=== PATIENT | female | born 1935 | race Caucasian/White ===

== ENCOUNTER 2017-03-15 20:26 | Inpatient (IN) ==
[2017-03-15] MEDS ORDERED: NITROGLYCERIN 2% OINT 1 INCH/GM PACK TOP STA (20:55)
[2017-03-15] MEDS ORDERED: methylPREDNISolone SOD SUC 125 MG/2 ML VIAL IV STA (20:55)
[2017-03-15] MEDS ORDERED: FUROSEMIDE 100 MG/10 ML VIAL IV STA (20:55)
[2017-03-15] MEDS ORDERED: ASPIRIN 325 MG TABLET PO STA (20:55)
[2017-03-15] MEDS ORDERED: ALBUTEROL 2.5 MG/3 ML NEB RESP TX SCH (21:00)
[2017-03-15 22:19] LABS: Basophils % 0.3 % (0.0-0.8); Eosinophils # 0.2 10*3/uL (0.0-0.87); Eosinophils % 2.5 % (0.00-10.9); Hematocrit 29.8 VOL% (35.7-47.0); Hemoglobin 9.7 GM/DL (12.0-16.0); Immature Granulocytes % 0.8 %; Immature Granulocytes Absolute 0.06 #; Lymphocytes # 0.7 10*3/uL (1.4-4.0); Lymphocytes % 9.4 % (21.3-54.2); Mean Corpuscular HGB Conc 32.6 GM/DL (32-36); Mean Corpuscular Hemoglobin 31 PG (27-34); Mean Corpuscular Volume 94.3 FL (87-102); Mean Platelet Volume 9.3 FL (9.6-12.0); Monocytes # 0.7 10*3/uL (0.11-0.8); Monocytes % 9.1 % (1.7-12.7); Neutrophils # 5.6 10*3/uL (1.4-7.4); Neutrophils % 77.9 % (38.7-73.9); Platelet Count 171 T/CUMM (130-400); Red Blood Count 3.16 MC/CUMM (3.8-5.5); Red Cell Distribution Width 12.8 % (9.3-17.3); White Blood Count 7.2 T/CUMM (4-12)
[2017-03-15 22:36] LABS: Alanine Aminotransferase 25 U/L (13-56); Albumin 2.8 G/DL (3.4-5.0); Alkaline Phosphatase 76 U/L (45-117); Aspartate Amino Transferase 26 U/L (0-37); Bilirubin,Total < 0.39 MG/DL (0.2-1.0); Blood Urea Nitrogen 58 MG/DL (7-18); Calcium 7.6 MG/DL (8.5-10.1); Glucose 246 MG/DL (74-106); Magnesium 2.1 MG/DL (1.8-2.4); Osmolality,Calculated 291.2 MOS/KG (273-304); Sodium 134 MMOL/L (136-145); Total Protein 6.9 G/DL (6.4-8.3); Troponin I Only 0.015 NG/ML (0.00-0.045)
[2017-03-15] MEDS ORDERED: ASPIRIN 325 MG TABLET ONE (22:45)
[2017-03-15] MEDS ORDERED: methylPREDNISolone SOD SUC 125 MG/2 ML VIAL ONE (22:45)
[2017-03-15] MEDS ORDERED: NITROGLYCERIN 2% OINT 1 INCH/GM PACK TOP ONE (22:45)
[2017-03-15] MEDS ORDERED: FUROSEMIDE 40 MG/4 ML VIAL ONE (22:45)
[2017-03-15 22:51] LABS: INR 1.1; PT Patient Result 11.6 SECS
[2017-03-15 22:52] LABS: Potassium 6.3 MMOL/L (3.5-5.1)
[2017-03-15] MEDS ORDERED: CALCIUM CHLORIDE 1,000 MG/10 ML SYRINGE IV STA (22:55)
[2017-03-15] MEDS ORDERED: CALCIUM CHLORIDE 1,000 MG/10 ML SYRINGE IV ONE (23:29)
[2017-03-16] MEDS ORDERED: GLUCAGON 1 MG VIAL IM PRN (02:50)
[2017-03-16] MEDS ORDERED: MORPHINE 2 MG/1 ML SYRINGE IV PRN (02:50)
[2017-03-16] MEDS ORDERED: ALBUTEROL/IPRATROPIUM 3 ML NEB RESP TX PRN (02:50)
[2017-03-16] MEDS ORDERED: DEXTROSE 50% 25 GM/50 ML VIAL IV PRN (02:50)
[2017-03-16] MEDS ORDERED: ACETAMINOPHEN 325 MG TABLET PO PRN (02:50)
[2017-03-16] MEDS ORDERED: PROMETHAZINE 25 MG TABLET PO PRN (02:50)
[2017-03-16] MEDS: SODIUM CHLORIDE 0.9% 1,000 ML IV SCH ×2 (03:30→21:42)
[2017-03-16] MEDS: cefTRIAXone 1,000 MG in SYRINGE 1 EACH IV SCH (03:30)
[2017-03-16] MEDS: SODIUM POLYSTYRENE SULFATE 15 GM/60 ML BOTTLE PO SCH ×4 (03:30→21:56)
[2017-03-16] MEDS ORDERED: cefTRIAXone 1,000 MG VIAL ONE (03:57)
[2017-03-16] MEDS ORDERED: SODIUM POLYSTYRENE SULFATE 15 GM/60 ML BOTTLE ONE (03:57)
[2017-03-16 05:18] LABS: Albumin 3.1 G/DL (3.4-5.0); Bilirubin,Total 0.4 MG/DL (0.2-1.0); Calcium 8.5 MG/DL (8.5-10.1); Magnesium 2.2 MG/DL (1.8-2.4); Osmolality,Calculated 294.5 MOS/KG (273-304)
[2017-03-16 05:21] LABS: Potassium 6.1 MMOL/L (3.5-5.1)
[2017-03-16 06:57] LABS: Basophils % 0.4 % (0.0-0.8); Hematocrit 30.8 VOL% (35.7-47.0); Hemoglobin 10.2 GM/DL (12.0-16.0); Immature Granulocytes Absolute 0.05 #; Lymphocytes # 0.5 10*3/uL (1.4-4.0); Lymphocytes % 9.6 % (21.3-54.2); Mean Corpuscular HGB Conc 33.1 GM/DL (32-36); Mean Corpuscular Hemoglobin 31 PG (27-34); Mean Corpuscular Volume 94.2 FL (87-102); Mean Platelet Volume 9.5 FL (9.6-12.0); Monocytes # 0.1 10*3/uL (0.11-0.8); Monocytes % 2.1 % (1.7-12.7); Neutrophils # 4.5 10*3/uL (1.4-7.4); Neutrophils % 86.9 % (38.7-73.9); Platelet Count 177 T/CUMM (130-400); Red Blood Count 3.27 MC/CUMM (3.8-5.5); Red Cell Distribution Width 12.7 % (9.3-17.3); White Blood Count 5.2 T/CUMM (4-12)
[2017-03-16 07:24] LABS: Band Neutrophils 4 % (0-10); Giant Platelets Few; Hypochromasia 1+; Lymphocytes 10 % (20-55); Microcytosis Slight; Platelet Estimate Normal; Segmented Neutrophils 85 % (50-85); Total Cells Counted 100
[2017-03-16] MEDS: INSULIN REGULAR 100 UNIT/ML SUBCUT SCH ×5 (08:00→21:29)
[2017-03-16] MEDS ORDERED: INSULIN REGULAR 100 UNIT/ML ONE (08:03)
[2017-03-16] MEDS ORDERED: FUROSEMIDE 40 MG/4 ML VIAL ONE (08:16)
[2017-03-16] MEDS: FUROSEMIDE 40 MG/4 ML VIAL IV SCH ×2 (08:29→17:28)
[2017-03-16] MEDS ORDERED: NON-FORMULARY MEDICATION (Omeprazole [Prilosec] 40 MG) PO SCH (09:00)
[2017-03-16] MEDS: GABAPENTIN 600 MG TABLET PO SCH ×2 (10:36→21:28)
[2017-03-16] MEDS: APIXABAN 2.5 MG TABLET PO SCH ×2 (10:36→21:28)
[2017-03-16] MEDS: CHOLECALCIFEROL 400 UNIT TABLET PO SCH (10:36)
[2017-03-16] MEDS ORDERED: PANTOPRAZOLE 40 MG TABLET PO ONE (10:37)
[2017-03-16] MEDS: MULTIVITAMIN (CENTRUM) TABLET PO SCH (10:37)
[2017-03-16] MEDS: CARVEDILOL 25 MG TABLET PO SCH ×2 (10:37→21:28)
[2017-03-16] MEDS: PANTOPRAZOLE 40 MG TABLET PO SCH (10:38)
[2017-03-16] MEDS ORDERED: MORPHINE 10 MG/1 ML VIAL IV PRN (11:30)
[2017-03-16 12:29] LABS: Hepatitis A Ab IgM Quant 0.07 Index; Hepatitis A Ab IgM Result Negative (Negative); Hepatitis B Core IgM Quant 0.07 Index; Hepatitis B Core IgM Result Negative (Negative); Hepatitis B Surface Ag Quant < 0.10 Index; Hepatitis B Surface Ag Result Negative (Negative); Hepatitis C Virus Ab Quant 0.05 Index; Hepatitis C Virus Ab Result Negative (Negative)
[2017-03-16] MEDS: CALCIUM ACETATE 667 MG CAPSULE PO SCH ×2 (12:47→17:39)
[2017-03-16] MEDS ORDERED: ONDANSETRON ODT 4 MG TABLET PO PRN (13:12)
[2017-03-16] MEDS: TERAZOSIN 1 MG CAPSULE PO SCH (21:28)
[2017-03-16] MEDS: ESCITALOPRAM 10 MG TABLET PO SCH (21:28)
[2017-03-16] MEDS: INSULIN GLARGINE 100 UNIT/ML SUBCUT SCH (21:29)
[2017-03-16] MEDS: amLODIPine 5 MG TABLET PO SCH (21:29)
[2017-03-17] MEDS: SODIUM POLYSTYRENE SULFATE 15 GM/60 ML BOTTLE PO SCH (02:28)
[2017-03-17] MEDS: cefTRIAXone 1,000 MG in SYRINGE 1 EACH IV SCH (04:58)
[2017-03-17 05:16] LABS: Hematocrit 31.8 VOL% (35.7-47.0); Hemoglobin 10.8 GM/DL (12.0-16.0); Immature Granulocytes % 0.7 %; Immature Granulocytes Absolute 0.04 #; Lymphocytes # 0.8 10*3/uL (1.4-4.0); Lymphocytes % 12.7 % (21.3-54.2); Mean Corpuscular Hemoglobin 31 PG (27-34); Mean Corpuscular Volume 90.9 FL (87-102); Mean Platelet Volume 9.6 FL (9.6-12.0); Monocytes # 0.5 10*3/uL (0.11-0.8); Monocytes % 8.9 % (1.7-12.7); Neutrophils # 4.7 10*3/uL (1.4-7.4); Neutrophils % 77.7 % (38.7-73.9); Platelet Count 201 T/CUMM (130-400); Red Cell Distribution Width 12.6 % (9.3-17.3)
[2017-03-17 05:33] LABS: Calcium 8.4 MG/DL (8.5-10.1); Osmolality,Calculated 291.5 MOS/KG (273-304)
[2017-03-17] MEDS: LEVOTHYROXINE 50 MCG TABLET PO SCH (06:26)
[2017-03-17] MEDS: GABAPENTIN 600 MG TABLET PO SCH ×2 (08:36→21:22)
[2017-03-17] MEDS: CETIRIZINE 10 MG TABLET PO SCH (08:36)
[2017-03-17] MEDS: MULTIVITAMIN (CENTRUM) TABLET PO SCH (08:37)
[2017-03-17] MEDS: PANTOPRAZOLE 40 MG TABLET PO SCH (08:37)
[2017-03-17] MEDS: CARVEDILOL 25 MG TABLET PO SCH ×2 (08:37→21:25)
[2017-03-17] MEDS: CALCIUM ACETATE 667 MG CAPSULE PO SCH ×3 (08:37→16:08)
[2017-03-17] MEDS: CHOLECALCIFEROL 400 UNIT TABLET PO SCH (08:37)
[2017-03-17] MEDS: ASPIRIN CHEW 81 MG TABLET PO SCH (08:37)
[2017-03-17] MEDS: COENZYME Q10 100 MG CAPSULE PO SCH (08:37)
[2017-03-17] MEDS: FUROSEMIDE 40 MG/4 ML VIAL IV SCH (08:37)
[2017-03-17] MEDS: APIXABAN 2.5 MG TABLET PO SCH ×2 (08:37→21:22)
[2017-03-17] MEDS: INSULIN REGULAR 100 UNIT/ML SUBCUT SCH ×4 (08:39→23:08)
[2017-03-17] MEDS ORDERED: CRANBERRY FRUIT 500 MG PO SCH (09:00)
[2017-03-17] MEDS ORDERED: ALBUTEROL/IPRATROPIUM 3 ML NEB RESP TX SCH (09:00)
[2017-03-17] MEDS ORDERED: NON-FORMULARY MEDICATION (Bifidobacterium Infantis [Align] 4 MG) PO SCH (09:00)
[2017-03-17] MEDS: SODIUM CHLORIDE 0.9% 1,000 ML IV SCH (09:02)
[2017-03-17] MEDS: ALBUTEROL/IPRATROPIUM 3 ML NEB RESP TX SCH ×2 (13:39→20:59)
[2017-03-17] MEDS ORDERED: SKIN HEALING OINT (AQUAPHOR) 50 GM TUBE TOP PRN (15:35)
[2017-03-17] MEDS: INSULIN GLARGINE 100 UNIT/ML SUBCUT SCH (21:21)
[2017-03-17] MEDS: ESCITALOPRAM 10 MG TABLET PO SCH (21:22)
[2017-03-17] MEDS: amLODIPine 5 MG TABLET PO SCH (21:22)
[2017-03-17] MEDS: TERAZOSIN 1 MG CAPSULE PO SCH (21:22)
[2017-03-18] MEDS: cefTRIAXone 1,000 MG in SYRINGE 1 EACH IV SCH (05:31)
[2017-03-18] MEDS: LEVOTHYROXINE 50 MCG TABLET PO SCH (05:32)
[2017-03-18] MEDS: ALBUTEROL/IPRATROPIUM 3 ML NEB RESP TX SCH ×3 (07:06→19:42)
[2017-03-18] MEDS: CARVEDILOL 25 MG TABLET PO SCH ×2 (08:36→21:37)
[2017-03-18] MEDS: CALCIUM ACETATE 667 MG CAPSULE PO SCH ×3 (08:36→17:00)
[2017-03-18] MEDS: ASPIRIN CHEW 81 MG TABLET PO SCH (08:36)
[2017-03-18] MEDS: GABAPENTIN 600 MG TABLET PO SCH ×2 (08:36→21:36)
[2017-03-18] MEDS: INSULIN REGULAR 100 UNIT/ML SUBCUT SCH ×4 (08:36→21:46)
[2017-03-18] MEDS: MULTIVITAMIN (CENTRUM) TABLET PO SCH (08:36)
[2017-03-18] MEDS: CHOLECALCIFEROL 400 UNIT TABLET PO SCH (08:36)
[2017-03-18] MEDS: PANTOPRAZOLE 40 MG TABLET PO SCH (08:36)
[2017-03-18] MEDS: APIXABAN 2.5 MG TABLET PO SCH ×2 (08:36→21:37)
[2017-03-18] MEDS: CETIRIZINE 10 MG TABLET PO SCH (08:36)
[2017-03-18] MEDS: COENZYME Q10 100 MG CAPSULE PO SCH (08:37)
[2017-03-18] MEDS: TERAZOSIN 1 MG CAPSULE PO SCH (21:36)
[2017-03-18] MEDS: ESCITALOPRAM 10 MG TABLET PO SCH (21:37)
[2017-03-18] MEDS: amLODIPine 5 MG TABLET PO SCH (21:38)
[2017-03-18] MEDS: INSULIN GLARGINE 100 UNIT/ML SUBCUT SCH (21:38)
[2017-03-19] MEDS: cefTRIAXone 1,000 MG in SYRINGE 1 EACH IV SCH (06:14)
[2017-03-19] MEDS: LEVOTHYROXINE 50 MCG TABLET PO SCH (06:17)
[2017-03-19] MEDS: ALBUTEROL/IPRATROPIUM 3 ML NEB RESP TX SCH ×3 (07:04→19:16)
[2017-03-19] MEDS: INSULIN REGULAR 100 UNIT/ML SUBCUT SCH ×4 (07:42→20:51)
[2017-03-19] MEDS: CALCIUM ACETATE 667 MG CAPSULE PO SCH ×3 (08:34→16:38)
[2017-03-19] MEDS: ASPIRIN CHEW 81 MG TABLET PO SCH (08:34)
[2017-03-19] MEDS: PANTOPRAZOLE 40 MG TABLET PO SCH (08:34)
[2017-03-19] MEDS: CARVEDILOL 25 MG TABLET PO SCH ×2 (08:34→20:49)
[2017-03-19] MEDS: APIXABAN 2.5 MG TABLET PO SCH ×2 (08:34→20:50)
[2017-03-19] MEDS: GABAPENTIN 600 MG TABLET PO SCH ×2 (08:34→20:49)
[2017-03-19] MEDS: MULTIVITAMIN (CENTRUM) TABLET PO SCH (08:34)
[2017-03-19] MEDS: CETIRIZINE 10 MG TABLET PO SCH (08:34)
[2017-03-19] MEDS: CHOLECALCIFEROL 400 UNIT TABLET PO SCH (08:34)
[2017-03-19] MEDS: COENZYME Q10 100 MG CAPSULE PO SCH (08:36)
[2017-03-19] MEDS ORDERED: LEVOFLOXACIN 500 MG TABLET PO ONE (12:19)
[2017-03-19] MEDS: methylPREDNISolone SOD SUC 40 MG/1 ML VIAL IV SCH ×2 (13:38→20:50)
[2017-03-19] MEDS: amLODIPine 5 MG TABLET PO SCH (20:49)
[2017-03-19] MEDS: ESCITALOPRAM 10 MG TABLET PO SCH (20:49)
[2017-03-19] MEDS: TERAZOSIN 1 MG CAPSULE PO SCH (20:49)
[2017-03-19] MEDS: INSULIN GLARGINE 100 UNIT/ML SUBCUT SCH (20:50)
[2017-03-20 04:23] VITALS: BP 165/74
[2017-03-20] MEDS: cefTRIAXone 1,000 MG in SYRINGE 1 EACH IV SCH (05:19)
[2017-03-20] MEDS: methylPREDNISolone SOD SUC 40 MG/1 ML VIAL IV SCH (05:19)
[2017-03-20] MEDS: LEVOTHYROXINE 50 MCG TABLET PO SCH ×2 (05:20→05:41)
[2017-03-20 06:01] LABS: Hematocrit 33.3 VOL% (35.7-47.0); Hemoglobin 10.9 GM/DL (12.0-16.0); Immature Granulocytes % 0.7 %; Immature Granulocytes Absolute 0.02 #; Lymphocytes # 0.6 10*3/uL (1.4-4.0); Lymphocytes % 22.5 % (21.3-54.2); Mean Corpuscular HGB Conc 32.7 GM/DL (32-36); Mean Corpuscular Hemoglobin 31 PG (27-34); Mean Corpuscular Volume 93.3 FL (87-102); Mean Platelet Volume 10.1 FL (9.6-12.0); Monocytes # 0.1 10*3/uL (0.11-0.8); Monocytes % 2.8 % (1.7-12.7); Neutrophils # 2.1 10*3/uL (1.4-7.4); Platelet Count 138 T/CUMM (130-400); Red Blood Count 3.57 MC/CUMM (3.8-5.5); Red Cell Distribution Width 12.3 % (9.3-17.3); White Blood Count 2.9 T/CUMM (4-12)
[2017-03-20 06:24] LABS: Calcium 8.1 MG/DL (8.5-10.1); Osmolality,Calculated 286.2 MOS/KG (273-304); Potassium 4.4 MMOL/L (3.5-5.1)
[2017-03-20 06:35] LABS: Band Neutrophils 2 % (0-10); Giant Platelets Few; Hypochromasia 1+; Lymphocytes 17 % (20-55); Ovalocytes Slight; Platelet Estimate Normal; Segmented Neutrophils 79 % (50-85); Total Cells Counted 100
[2017-03-20 06:36] LABS: Microcytosis Slight
[2017-03-20] MEDS: INSULIN REGULAR 100 UNIT/ML SUBCUT SCH (07:36)
[2017-03-20] MEDS: ALBUTEROL/IPRATROPIUM 3 ML NEB RESP TX SCH (07:37)
[2017-03-20] MEDS: CETIRIZINE 10 MG TABLET PO SCH (08:25)
[2017-03-20] MEDS: MULTIVITAMIN (CENTRUM) TABLET PO SCH (08:25)
[2017-03-20] MEDS: CARVEDILOL 25 MG TABLET PO SCH (08:25)
[2017-03-20] MEDS: CHOLECALCIFEROL 400 UNIT TABLET PO SCH (08:25)
[2017-03-20] MEDS: APIXABAN 2.5 MG TABLET PO SCH (08:25)
[2017-03-20] MEDS: PANTOPRAZOLE 40 MG TABLET PO SCH (08:25)
[2017-03-20] MEDS: ASPIRIN CHEW 81 MG TABLET PO SCH (08:25)
[2017-03-20] MEDS: CALCIUM ACETATE 667 MG CAPSULE PO SCH (08:25)
[2017-03-20] MEDS: GABAPENTIN 600 MG TABLET PO SCH (08:25)
[2017-03-20] MEDS: COENZYME Q10 100 MG CAPSULE PO SCH (08:26)
== END 2017-03-20 10:21 | disposition home or self-care (01) | DRG 291 ==
LOC: N.ED 20:26 → N.EDINP 23:05 → N.TELES 03-16 12:07
PROVIDERS: ADMIT Internal Medicine; ATTEND Internal Medicine